=== PATIENT | female | born 1990 | race Native Hawaiian/Other Pacific Islander ===

== ENCOUNTER 2019-09-11 14:28 | Emergency (ER) | payer OTHER ==
[~2019-09-11] VITALS: Ht 162.6 cm; Wt 109.9 kg
[2019-09-11] MEDS ORDERED: TEGRETOL200 MG PO (14:47)
[2019-09-11 15:22] LABS: PLATELET COUNT 280 K/uL (152-353)
[2019-09-11 15:36] LABS: POTASSIUM 3.6 mmol/L (3.6-5.2)
[2019-09-11 16:02] VITALS: BP 129/71; TEMP 100.6
== END 2019-09-11 16:09 | disposition home or self-care (01) ==
LOC: ED 14:28
PROVIDERS: Emergency Medicine
DX: J11.1 Influenza due to unidentified influenza virus with other respiratory manifestations (principal)
CPT/HCPCS: 80053; 85027; 87502; 87651; 99283